=== PATIENT | female | born 1955 | race Two or more races ===

== ENCOUNTER → 2024-06-25 | Outpatient (CLI) | payer OTHER, SELFPAY ==
[2024-06-25 12:26] LABS: Creatinine,Random Urine 109 mg/dL (30-125)
== END | disposition home or self-care (01) ==
LOC: COPL 11:31 → SLDO 11:35
PROVIDERS: PCP Internal Medicine; Referring Provider Internal Medicine; Visit Provider Internal Medicine
DX: E11.65 Type 2 diabetes mellitus with hyperglycemia (principal)
CPT/HCPCS: 82570

== ENCOUNTER → 2024-10-01 | Outpatient (CLI) | payer OTHER, SELFPAY ==
[2024-10-01 12:06] LABS: Basophils # (Auto) 0.1 Thou/mm3 (0.0-0.2); Basophils % (Auto) 1 % (0-2.5); Eosinophils # (Auto) 0.1 Thou/mm3 (0.0-0.5); Eosinophils % (Auto) 1 % (0-10); Hematocrit 39.2 % (36.0-46.0); Hemoglobin 12.6 g/dL (12.0-16.0); Immature Granulocytes % (Auto) 1 % (0-0); Immature Granulocytes Auto 0.04 Thou/mm3 (0.00-0.00); Lymphocytes # (Auto) 3.1 Thou/mm3 (1.0-4.8); Lymphocytes % (Auto) 36 % (10-50); Mean Corpuscular HGB Conc 32.1 g/dl (31.0-37.0); Mean Corpuscular Hemoglobin 27.7 pg (25.0-35.0); Mean Corpuscular Volume 86 fL (80-100); Monocytes # (Auto) 0.6 Thou/mm3 (0.0-0.8); Monocytes % (Auto) 7 % (0-12); Neutrophils # (Auto) 4.7 Thou/mm3 (1.8-7.7); Neutrophils % (Auto) 55 % (37-80); Nucleated Red Blood Cell % 0 /100 WBC (0); Platelet Count 398 Thou/mm3 (140-440); RDW Standard Deviation 46.7 fL (36.4-46.3); Red Blood Count 4.55 Miln/mm3 (4.00-5.20); White Blood Count 8.6 Thou/mm3 (3.6-11.0)
[2024-10-01 12:12] LABS: Iron 49 mcg/dL (50-170)
[2024-10-01 12:53] LABS: Glucose Estimated Average 189 mg/dL (80-131); Hemoglobin A1C 8.2 % Hgb (4.8-6.0)
[2024-10-01 12:57] LABS: Alanine Aminotransferase 33 U/L (10-49); Albumin, Serum 4.3 gm/dL (3.4-4.8); Albumin/Globulin Ratio 1.9 (1.2-2.2); Alkaline Phosphatase 73 U/L (46-116); Anion Gap 9 (7-16); Aspartate Amino Transferase 35 U/L (0-34); BUN/Creatinine Ratio 13 Ratio (12-20); Bilirubin,Total 0.3 mg/dL (0.3-1.2); Blood Urea Nitrogen 9 mg/dL (9-23); Calcium 9.6 mg/dL (8.3-10.6); Calcium (Corrected) 9.6 mg/dL (8.5-10.1); Cardiac Risk Estimate 1.8 RATIO (3.7-5.6); Chloride 104 mMol/L (98-107); Cholesterol 101 mg/dL (132-200); Creatinine (Component) 0.7 mg/dL (0.6-1.3); Free T4 (Free Thyroxine) 1.11 ng/dL (0.89-1.76); Globulin 2.3 gm/dL (2.3-3.5); Glucose 127 mg/dL (74-106); HDL Cholesterol 57 mg/dL (40-60); LDL Cholesterol,Calculated 26 mg/dL (0-130); Osmolality,Calculated 285 (275-295); Potassium 4.4 mMol/L (3.4-5.1); Sodium 143 mMol/L (136-145); Thyroid Stimulating Hormone 1.89 uIU/mL (0.55-4.78); Total Protein 6.6 gm/dL (5.7-8.2); Triglycerides 89 mg/dL (30-150); eGFR > 60 See Note
[2024-10-01 13:30] LABS: Creatinine MALB Rnd Ur 84 mg/dL (30-125); Microalbumin, Random Urine < 3 mg/L (0-300)
== END | disposition home or self-care (01) ==
PROVIDERS: PCP Internal Medicine; Referring Provider Internal Medicine; Visit Provider Internal Medicine
DX: D50.0 Iron deficiency anemia secondary to blood loss (chronic) (principal); E11.65 Type 2 diabetes mellitus with hyperglycemia
CPT/HCPCS: 36415; 80053; 80061; 82043; 82570; 83036; 83540; 84439; 84443; 85025

== ENCOUNTER → 2025-01-06 | Outpatient (CLI) | payer OTHER, SELFPAY ==
[2025-01-06 12:56] LABS: Glucose Estimated Average 177 mg/dL (80-131); Hemoglobin A1C 7.8 % Hgb (4.8-6.0)
[2025-01-06 13:03] LABS: Alanine Aminotransferase 21 U/L (10-49); Albumin, Serum 4.3 gm/dL (3.4-4.8); Albumin/Globulin Ratio 1.8 (1.2-2.2); Alkaline Phosphatase 70 U/L (46-116); Anion Gap 14 (7-16); Aspartate Amino Transferase 28 U/L (0-34); BUN/Creatinine Ratio 13 Ratio (12-20); Bilirubin,Total 0.3 mg/dL (0.3-1.2); Blood Urea Nitrogen 9 mg/dL (9-23); Calcium 8.7 mg/dL (8.3-10.6); Calcium (Corrected) 8.7 mg/dL (8.5-10.1); Chloride 102 mMol/L (98-107); Creatinine (Component) 0.7 mg/dL (0.6-1.3); Globulin 2.4 gm/dL (2.3-3.5); Glucose 124 mg/dL (74-106); Osmolality,Calculated 286 (275-295); Potassium 4.3 mMol/L (3.4-5.1); Sodium 144 mMol/L (136-145); Total Protein 6.7 gm/dL (5.7-8.2); eGFR > 60 See Note
== END | disposition home or self-care (01) ==
LOC: COPL 10:56
PROVIDERS: PCP Internal Medicine; Referring Provider Internal Medicine; Visit Provider Internal Medicine
DX: E11.65 Type 2 diabetes mellitus with hyperglycemia (principal); I10 Essential (primary) hypertension
CPT/HCPCS: 36415; 80053; 83036

== ENCOUNTER → 2025-03-12 | Outpatient (CLI) | payer OTHER, SELFPAY ==
[2025-03-12 11:25] LABS: Collection Type, Urine Clean Catch
[2025-03-12 12:20] LABS: Glucose Estimated Average 192 mg/dL (80-131); Hemoglobin A1C 8.3 % Hgb (4.8-6.0)
[2025-03-12 12:23] LABS: Iron 65 mcg/dL (50-170)
[2025-03-12 12:26] LABS: Alanine Aminotransferase 33 U/L (10-49); Albumin, Serum 4.3 gm/dL (3.4-4.8); Albumin/Globulin Ratio 1.9 (1.2-2.2); Alkaline Phosphatase 79 U/L (46-116); Anion Gap 11 (7-16); Aspartate Amino Transferase 32 U/L (0-34); BUN/Creatinine Ratio 10 Ratio (12-20); Bilirubin,Total 0.3 mg/dL (0.3-1.2); Blood Urea Nitrogen 8 mg/dL (9-23); Calcium 9.2 mg/dL (8.3-10.6); Calcium (Corrected) 9.2 mg/dL (8.5-10.1); Carbon Dioxide 29.2 mMol/L (20.0-31.0); Cardiac Risk Estimate 2.2 RATIO (3.7-5.6); Chloride 103 mMol/L (98-107); Cholesterol 110 mg/dL (132-200); Creatinine (Component) 0.8 mg/dL (0.6-1.3); Free T4 (Free Thyroxine) 0.97 ng/dL (0.89-1.76); Globulin 2.3 gm/dL (2.3-3.5); Glucose 124 mg/dL (74-106); HDL Cholesterol 50 mg/dL (40-60); LDL Cholesterol,Calculated 37 mg/dL (0-130); Magnesium 1.4 mg/dL (1.6-2.6); Osmolality,Calculated 284 (275-295); Potassium 4.4 mMol/L (3.4-5.1); Sodium 143 mMol/L (136-145); Thyroid Stimulating Hormone 2.26 uIU/mL (0.55-4.78); Total Protein 6.6 gm/dL (5.7-8.2); Triglycerides 115 mg/dL (30-150); eGFR > 60 See Note
[2025-03-12 12:52] LABS: Bilirubin,Urine Negative (Negative); Blood,Urine Negative (Negative); Clarity,Urine Clear (Clear/Hazy); Color,Urine Lt-Yellow (Lt Yel-Yel); Culture Indicated,Urine Not Indicated; Glucose, Urine Negative (Negative); Ketones,Urine Negative (Negative); Leukocyte Esterase,Urine Positive (Negative); Nitrite,Urine Negative (Negative); PH,Urine 5.5 (5.0-7.0); Protein,Urine Negative (Neg - Trace); RBC,Urine 1 /hpf (0-3); Specific Gravity,Urine 1.016 (1.001-1.035); Squamous Epithelial Cell,Urine 2 /hpf (0-5); Urobilinogen,Urine Negative mg/dL (0.0-1.0); WBC,Urine 8 /hpf (0-5)
== END | disposition home or self-care (01) ==
LOC: COPL 10:44
PROVIDERS: PCP Internal Medicine; Referring Provider Internal Medicine; Visit Provider Internal Medicine
DX: E11.65 Type 2 diabetes mellitus with hyperglycemia (principal); N39.0 Urinary tract infection, site not specified
CPT/HCPCS: 36415; 80053; 80061; 81001; 83036; 83540; 83735; 84439; 84443

== ENCOUNTER → 2025-06-17 | Outpatient (CLI) | payer OTHER, SELFPAY ==
[2025-06-17 09:37] LABS: Glucose Estimated Average 180 mg/dL (80-131); Hemoglobin A1C 7.9 % Hgb (4.8-6.0)
== END | disposition home or self-care (01) ==
LOC: COPL 08:21
PROVIDERS: PCP Internal Medicine; Referring Provider Internal Medicine; Visit Provider Internal Medicine
DX: E11.65 Type 2 diabetes mellitus with hyperglycemia (principal)
CPT/HCPCS: 36415; 83036